=== PATIENT | female | born 1945 | race Caucasian/White ===

== ENCOUNTER 2025-01-31 15:55 | Inpatient (IN) | payer MEDICARE ==
[~2025-01-31 15:55] MED LIST: Iopamidol 370 76% 100 ML VIAL ONE
[2025-01-31] MEDS ORDERED: Heparin 25,000 UNITS/D5W 500 ml bag ONE (16:01)
[2025-01-31] MEDS ORDERED: Adenosine 6 mg (2 mL) VIAL ONE (16:07)
[2025-01-31 16:32] LABS: #Basophils 0.04 10x3/uL (0.0-0.2); #Eosinophils 0.03 10x3/uL (0.0-0.7); #Monocytes 0.66 10x3/uL (0.11-0.59); #Neutrophils 7.91 10x3/uL (1.40-6.50); %Basophils 0.4 % (0.0-1.0); %Eosinophils 0.3 % (0.0-10.0); %Lymphocytes 12.7 % (21.0-51.0); %Monocytes 6.6 % (0.0-10.0); %Neutrophils 79.4 % (42.0-75.0); Hematocrit 38.5 % (36.0-47.0); Hemoglobin 11.6 g/dL (12.0-16.0); Mean Corpuscular Hemoglobin 31.7 pg (27.0-31.0); Mean Corpuscular Volume 105.2 fL (78.0-98.0); Platelet Count 179 10x3/uL (130-400); Red Blood Cell (RBC) Count 3.66 mill/uL (4.20-5.40); White Blood Cell (WBC) Count 9.97 10x3/uL (4.8-10.8)
[2025-01-31 16:45] LABS: INR-International Normal Ratio 1.0; Prothrombin Time 13.7 sec (12.0-14.7)
[2025-01-31 16:47] LABS: ALT (SGPT) 17 U/L (Less than 34); AST (SGOT) 50 U/L (11-34); Albumin 3.3 g/dL (3.1-4.5); Alkaline Phosphatase 38 U/L (40-110); Anion Gap 14 mmol/L (10-20); BUN (Urea Nitrogen) 20 mg/dL (9.8-20.1); Bilirubin, Total 0.3 mg/dL (0.3-1.2); Calc. Creatinine Clearance 0 mL/min (70-130); Calcium 8.5 mg/dL (7.8-10.44); Carbon Dioxide 20 mmol/L (23-31); Chloride 109 mmol/L (98-107); Globulin 3.5 g/dL (2.4-3.5); Glucose 148 mg/dL (83-110); Potassium 3.8 mmol/L (3.5-5.1); Sodium 139 mmol/L (136-145)
[2025-01-31] MEDS ORDERED: Nitroglycerin 50 MG/250 ML BOT 250 ML ONE (16:50)
[2025-01-31] MEDS ORDERED: Lidocaine 1% (PF) 30 ML VIAL ONE (16:50)
[2025-01-31 16:57] LABS: PTT 250.0 sec (22.9-36.1)
[2025-01-31] MEDS ORDERED: Heparin 10,000 UNITS/ 10 ML VIAL ONE (17:33)
[2025-01-31] MEDS ORDERED: TICAGRELOR 90 MG TABLET ONE (18:01)
[2025-01-31] MEDS ORDERED: TICAGRELOR 90 MG TABLET PO SCH ×2 (18:45→21:00)
[2025-01-31] MEDS ORDERED: Nitroglycerin 50 MG/250 ML BOT 250 ML IVPB SCH (19:00)
[2025-01-31] MEDS ORDERED: Heparin 10,000 UNITS/ 10 ML VIAL SLOW IVP SCH (19:00)
[2025-01-31 19:50] VITALS: BMI 34.0
[2025-01-31] MEDS ORDERED: Calcium Carbonate 500 MG ChewTAB PO PRN (19:50)
[2025-01-31 20:44] LABS: Hematocrit 34.3 % (36.0-47.0); Hemoglobin 11.0 g/dL (12.0-16.0); Platelet Count 197 10x3/uL (130-400)
[2025-01-31 21:20] LABS: PTT Greater than 250.0 sec (22.9-36.1)
[2025-01-31 21:20] LABS: Anion Gap 13 mmol/L (10-20); BUN (Urea Nitrogen) 16 mg/dL (9.8-20.1); Calc. Creatinine Clearance 111 mL/min (70-130); Calcium 8.1 mg/dL (7.8-10.44); Carbon Dioxide 23 mmol/L (23-31); Chloride 107 mmol/L (98-107); Glucose 141 mg/dL (83-110); Magnesium 1.9 mg/dL (1.6-2.6); Potassium 4.2 mmol/L (3.5-5.1); Sodium 139 mmol/L (136-145)
[2025-01-31] MEDS: Acetaminophen 325 MG TAB PO PRN (22:27)
[2025-02-01] MEDS: Magnesium 2 GM/50 ML(in water) 2 GM in Premix 1 BAG IVPB SCH (00:11)
[2025-02-01 01:17] LABS: PTT 144.8 sec (22.9-36.1)
[2025-02-01 02:39] LABS: #Basophils 0.03 10x3/uL (0.0-0.2); #Eosinophils Less than 0.03 10x3/uL (0.0-0.7); #Monocytes 1.26 10x3/uL (0.11-0.59); #Neutrophils 7.45 10x3/uL (1.40-6.50); %Basophils 0.3 % (0.0-1.0); %Eosinophils 0.2 % (0.0-10.0); %Lymphocytes 11.9 % (21.0-51.0); %Monocytes 12.6 % (0.0-10.0); %Neutrophils 74.7 % (42.0-75.0); Hematocrit 33.0 % (36.0-47.0); Hemoglobin 10.5 g/dL (12.0-16.0); Mean Corpuscular Hemoglobin 31.8 pg (27.0-31.0); Mean Corpuscular Volume 100.0 fL (78.0-98.0); Platelet Count 193 10x3/uL (130-400); Red Blood Cell (RBC) Count 3.30 mill/uL (4.20-5.40); White Blood Cell (WBC) Count 9.98 10x3/uL (4.8-10.8)
[2025-02-01 03:28] LABS: ALT (SGPT) 28 U/L (Less than 34); AST (SGOT) 184 U/L (11-34); Albumin 3.0 g/dL (3.1-4.5); Alkaline Phosphatase 34 U/L (40-110); Anion Gap 11 mmol/L (10-20); BUN (Urea Nitrogen) 14 mg/dL (9.8-20.1); Bilirubin, Total 0.5 mg/dL (0.3-1.2); Calc. Creatinine Clearance 116 mL/min (70-130); Calcium 8.2 mg/dL (7.8-10.44); Carbon Dioxide 24 mmol/L (23-31); Chloride 105 mmol/L (98-107); Globulin 3.0 g/dL (2.4-3.5); Glucose 132 mg/dL (83-110); Potassium 3.9 mmol/L (3.5-5.1); Sodium 136 mmol/L (136-145)
[2025-02-01] MEDS: TICAGRELOR 90 MG TABLET PO SCH (09:55)
[2025-02-01] MEDS: Aspirin Chewable 81 MG TAB PO SCH (09:55)
[2025-02-01] MEDS: Lisinopril 2.5 MG TAB PO SCH (09:56)
[2025-02-01] MEDS: PNEUMOC 20-VAL CONJ-DIP CRM/PF 0.5 ML SYRINGE IM ONE (09:57)
[2025-02-01] MEDS: Ondansetron PF 4 MG/2 ML Vial IVP PRN (10:07)
[2025-02-01 11:01] LABS: PTT 136.5 sec (22.9-36.1)
[2025-02-01] MEDS: Enoxaparin 80 MG (0.8 mL) SYRINGE SC SCH (20:34)
[2025-02-02] MEDS: Furosemide 40 MG (4 mL) VIAL SLOW IVP SCH (00:46)
[2025-02-02 02:44] LABS: #Basophils 0.03 10x3/uL (0.0-0.2); #Eosinophils Less than 0.03 10x3/uL (0.0-0.7); #Monocytes 1.02 10x3/uL (0.11-0.59); #Neutrophils 8.29 10x3/uL (1.40-6.50); %Basophils 0.3 % (0.0-1.0); %Eosinophils 0.1 % (0.0-10.0); %Lymphocytes 9.2 % (21.0-51.0); %Monocytes 9.9 % (0.0-10.0); %Neutrophils 80.0 % (42.0-75.0); Hematocrit 37.4 % (36.0-47.0); Hemoglobin 11.8 g/dL (12.0-16.0); Mean Corpuscular Hemoglobin 31.8 pg (27.0-31.0); Mean Corpuscular Volume 100.8 fL (78.0-98.0); Platelet Count 197 10x3/uL (130-400); Red Blood Cell (RBC) Count 3.71 mill/uL (4.20-5.40); White Blood Cell (WBC) Count 10.35 10x3/uL (4.8-10.8)
[2025-02-02 03:19] LABS: Hb (HGBA1c) 3421.3444 umol/L
[2025-02-02 04:32] LABS: Anion Gap 18 mmol/L (10-20); BUN (Urea Nitrogen) 14 mg/dL (9.8-20.1); Calc. Creatinine Clearance 103 mL/min (70-130); Carbon Dioxide 20 mmol/L (23-31); Chloride 100 mmol/L (98-107); Potassium 4.1 mmol/L (3.5-5.1); Sodium 134 mmol/L (136-145)
[2025-02-02 04:33] LABS: ALT (SGPT) 31 U/L (Less than 34); AST (SGOT) 130 U/L (11-34); Albumin 3.4 g/dL (3.1-4.5); Alkaline Phosphatase 44 U/L (40-110); Bilirubin, Total 0.7 mg/dL (0.3-1.2); Calcium 8.7 mg/dL (7.8-10.44); Cardiac Risk 2.6 (Less than 4.5); Cholesterol 174 mg/dl (< 200 Desired); Globulin 3.4 g/dL (2.4-3.5); Glucose 123 mg/dL (83-110); HDL Cholesterol 66 mg/dL (>60 Neg Risk); LDL Cholesterol, Calculated 89 mg/dL; Magnesium 2.0 mg/dL (1.6-2.6); Triglycerides 94 mg/dL (Less than 150)
[2025-02-02] MEDS: Magnesium 2 GM/50 ML(in water) 2 GM in Premix 1 BAG IVPB SCH (08:23)
[2025-02-02] MEDS: Milk Of Magnesia 30 ML UDCUP PO PRN (17:22)
[2025-02-02 18:58] LABS: Hematocrit 36.8 % (36.0-47.0); Hemoglobin 11.6 g/dL (12.0-16.0); Platelet Count 187 10x3/uL (130-400)
[2025-02-03 04:59] LABS: #Basophils Less than 0.03 10x3/uL (0.0-0.2); #Eosinophils 0.06 10x3/uL (0.0-0.7); #Monocytes 1.32 10x3/uL (0.11-0.59); #Neutrophils 5.61 10x3/uL (1.40-6.50); %Basophils 0.2 % (0.0-1.0); %Eosinophils 0.7 % (0.0-10.0); %Lymphocytes 18.2 % (21.0-51.0); %Monocytes 15.3 % (0.0-10.0); %Neutrophils 65.0 % (42.0-75.0); Hematocrit 34.3 % (36.0-47.0); Hemoglobin 10.8 g/dL (12.0-16.0); Mean Corpuscular Hemoglobin 31.6 pg (27.0-31.0); Mean Corpuscular Volume 100.3 fL (78.0-98.0); Platelet Count 191 10x3/uL (130-400); Red Blood Cell (RBC) Count 3.42 mill/uL (4.20-5.40); White Blood Cell (WBC) Count 8.63 10x3/uL (4.8-10.8)
[2025-02-03 05:18] LABS: ALT (SGPT) 28 U/L (Less than 34); AST (SGOT) 69 U/L (11-34); Albumin 2.8 g/dL (3.1-4.5); Alkaline Phosphatase 41 U/L (40-110); Anion Gap 10 mmol/L (10-20); BUN (Urea Nitrogen) 21 mg/dL (9.8-20.1); Bilirubin, Total 0.6 mg/dL (0.3-1.2); Calc. Creatinine Clearance 77 mL/min (70-130); Calcium 8.5 mg/dL (7.8-10.44); Carbon Dioxide 31 mmol/L (23-31); Chloride 102 mmol/L (98-107); Globulin 3.3 g/dL (2.4-3.5); Glucose 96 mg/dL (83-110); Potassium 3.5 mmol/L (3.5-5.1); Sodium 139 mmol/L (136-145)
[2025-02-04 05:08] LABS: Anion Gap 13 mmol/L (10-20); BUN (Urea Nitrogen) 27 mg/dL (9.8-20.1); Calc. Creatinine Clearance 88 mL/min (70-130); Calcium 8.2 mg/dL (7.8-10.44); Carbon Dioxide 26 mmol/L (23-31); Chloride 105 mmol/L (98-107); Glucose 91 mg/dL (83-110); Magnesium 2.4 mg/dL (1.6-2.6); Potassium 3.9 mmol/L (3.5-5.1); Sodium 140 mmol/L (136-145)
[2025-02-04 15:09] VITALS: BP 125/68; TEMP 98.6
== END 2025-02-04 17:55 | disposition home or self-care (01) | DRG 321 ==
LOC: ERS 15:55 → CCU 18:37 → 2NO 02-02 09:34
PROVIDERS: ADMIT Internal Medicine Cardiovascular Disease; ATTEND Internal Medicine
PROC: 4A023N7 Measurement of Cardiac Sampling and Pressure, Left Heart, Percutaneous Approach (ICD-10-PCS; principal; 2025-01-31)
PROC: 027034Z Dilation of Coronary Artery, One Artery with Drug-eluting Intraluminal Device, Percutaneous Approach (ICD-10-PCS; 2025-01-31)
PROC: B2151ZZ Fluoroscopy of Left Heart using Low Osmolar Contrast (ICD-10-PCS; 2025-01-31)
PROC: B2111ZZ Fluoroscopy of Multiple Coronary Arteries using Low Osmolar Contrast (ICD-10-PCS; 2025-01-31)
DX: I21.3 ST elevation (STEMI) myocardial infarction of unspecified site (principal); I50.21 Acute systolic (congestive) heart failure; E87.20 Acidosis, unspecified; E87.1 Hypo-osmolality and hyponatremia; M06.9 Rheumatoid arthritis, unspecified; F41.9 Anxiety disorder, unspecified; I25.10 Atherosclerotic heart disease of native coronary artery without angina pectoris; E87.6 Hypokalemia; E83.42 Hypomagnesemia; R74.01 Elevation of levels of liver transaminase levels; I11.0 Hypertensive heart disease with heart failure; Z90.710 Acquired absence of both cervix and uterus; Z98.890 Other specified postprocedural states; Z79.899 Other long term (current) drug therapy
CPT/HCPCS: 36415; 71045; 80048; 80053; 80061; 83036; 83735; 83880; 84100; 84484; 85014; 85018; 85025; 85049; 85347; 85610; 85730; 86850; 86900; 86901; 92941; 93005; 93010; 93306; 93458; 93798; 94760; 96365; 99152; 99153; C1769; C1874; C1887; C1894; C9606; J0153; J1644; J1650; J1940; J2250; J3475; J7030; Q9967

== ENCOUNTER 2025-02-14 19:37 | Inpatient (IN) | payer MEDICARE ==
[2025-02-14] MEDS ORDERED: Boostrix 0.5 ML (Tdap) VIAL (>/=7 yrs of age) ONE (20:28)
[2025-02-14 20:37] LABS: #Basophils 0.04 10x3/uL (0.0-0.2); #Eosinophils 0.16 10x3/uL (0.0-0.7); #Monocytes 1.00 10x3/uL (0.11-0.59); #Neutrophils 8.18 10x3/uL (1.40-6.50); %Basophils 0.4 % (0.0-1.0); %Eosinophils 1.5 % (0.0-10.0); %Lymphocytes 8.8 % (21.0-51.0); %Monocytes 9.6 % (0.0-10.0); %Neutrophils 78.6 % (42.0-75.0); Hematocrit 33.1 % (36.0-47.0); Hemoglobin 10.5 g/dL (12.0-16.0); Mean Corpuscular Hemoglobin 31.5 pg (27.0-31.0); Mean Corpuscular Volume 99.4 fL (78.0-98.0); Platelet Count 226 10x3/uL (130-400); Red Blood Cell (RBC) Count 3.33 mill/uL (4.20-5.40); White Blood Cell (WBC) Count 10.40 10x3/uL (4.8-10.8)
[2025-02-14 20:51] LABS: INR-International Normal Ratio 1.0; PTT 34.1 sec (22.9-36.1); Prothrombin Time 13.5 sec (12.0-14.7)
[2025-02-14 20:52] LABS: ALT (SGPT) 117 U/L (Less than 34); AST (SGOT) 111 U/L (11-34); Albumin 2.9 g/dL (3.1-4.5); Alkaline Phosphatase 353 U/L (40-110); Anion Gap 11 mmol/L (10-20); BUN (Urea Nitrogen) 12 mg/dL (9.8-20.1); Bilirubin, Total 0.5 mg/dL (0.3-1.2); Calc. Creatinine Clearance 0 mL/min (70-130); Calcium 8.0 mg/dL (7.8-10.44); Carbon Dioxide 22 mmol/L (23-31); Chloride 108 mmol/L (98-107); Globulin 3.3 g/dL (2.4-3.5); Glucose 96 mg/dL (83-110); Potassium 3.9 mmol/L (3.5-5.1); Sodium 137 mmol/L (136-145)
[2025-02-14] MEDS ORDERED: Lidocaine 1% w/Epinephrine 1:100K 20 ML VIAL ONE (22:00)
[2025-02-14] MEDS ORDERED: Calcium Carbonate 500 MG ChewTAB PO PRN (22:28)
[2025-02-14] MEDS ORDERED: Melatonin 3 MG TAB PO PRN (22:28)
[2025-02-15] VITALS: BMI 32.2
[2025-02-15 04:59] LABS: #Basophils 0.06 10x3/uL (0.0-0.2); #Eosinophils 0.12 10x3/uL (0.0-0.7); #Monocytes 0.91 10x3/uL (0.11-0.59); #Neutrophils 8.47 10x3/uL (1.40-6.50); %Basophils 0.5 % (0.0-1.0); %Eosinophils 1.1 % (0.0-10.0); %Lymphocytes 12.9 % (21.0-51.0); %Monocytes 8.2 % (0.0-10.0); %Neutrophils 76.6 % (42.0-75.0); Hematocrit 33.9 % (36.0-47.0); Hemoglobin 10.6 g/dL (12.0-16.0); Mean Corpuscular Hemoglobin 31.3 pg (27.0-31.0); Mean Corpuscular Volume 100.0 fL (78.0-98.0); Platelet Count 263 10x3/uL (130-400); Red Blood Cell (RBC) Count 3.39 mill/uL (4.20-5.40); White Blood Cell (WBC) Count 11.07 10x3/uL (4.8-10.8)
[2025-02-15 05:30] LABS: Iron 38 ug/dL (50-170); Iron Binding Capacity, Total 293 mcg/dL (265-497)
[2025-02-15 07:17] LABS: Chloride 107 mmol/L (98-107); Potassium 3.9 mmol/L (3.5-5.1); Sodium 138 mmol/L (136-145)
[2025-02-15 07:18] LABS: Calcium 8.1 mg/dL (7.8-10.44); Glucose 90 mg/dL (83-110)
[2025-02-15 07:20] LABS: Anion Gap 14 mmol/L (10-20); Carbon Dioxide 21 mmol/L (23-31)
[2025-02-15 07:22] LABS: BUN (Urea Nitrogen) 11 mg/dL (9.8-20.1); Calc. Creatinine Clearance 101 mL/min (70-130)
[2025-02-15 07:24] LABS: Iron 25 ug/dL (50-170); Iron Binding Capacity, Total 266 mcg/dL (265-497)
[2025-02-15] MEDS: Lisinopril 10 MG TAB PO SCH (09:44)
[2025-02-15] MEDS: Aspirin Chewable 81 MG TAB PO SCH (09:44)
[2025-02-15] MEDS: Folic Acid 1 MG TAB PO SCH (09:44)
[2025-02-15] MEDS: Enoxaparin 40 MG (0.4 mL) SYRINGE SC SCH (09:44)
[2025-02-15] MEDS: Metoprolol Succinate XL 25 MG ER.TAB PO SCH (09:45)
[2025-02-15] MEDS: TICAGRELOR 90 MG TABLET PO SCH (10:36)
[2025-02-15] MEDS: Senokot S 8.6-50 MG TAB PO PRN (10:39)
[2025-02-15] MEDS: Ondansetron PF 4 MG/2 ML Vial IVP PRN (22:37)
[2025-02-16 04:28] LABS: #Basophils 0.04 10x3/uL (0.0-0.2); #Eosinophils 0.20 10x3/uL (0.0-0.7); #Monocytes 0.95 10x3/uL (0.11-0.59); #Neutrophils 6.50 10x3/uL (1.40-6.50); %Basophils 0.4 % (0.0-1.0); %Eosinophils 2.2 % (0.0-10.0); %Lymphocytes 13.6 % (21.0-51.0); %Monocytes 10.6 % (0.0-10.0); %Neutrophils 72.3 % (42.0-75.0); Hematocrit 31.4 % (36.0-47.0); Hemoglobin 9.7 g/dL (12.0-16.0); Mean Corpuscular Hemoglobin 31.5 pg (27.0-31.0); Mean Corpuscular Volume 101.9 fL (78.0-98.0); Platelet Count 236 10x3/uL (130-400); Red Blood Cell (RBC) Count 3.08 mill/uL (4.20-5.40); White Blood Cell (WBC) Count 8.99 10x3/uL (4.8-10.8)
[2025-02-16 04:35] LABS: Anion Gap 18 mmol/L (10-20); BUN (Urea Nitrogen) 9 mg/dL (9.8-20.1); Calc. Creatinine Clearance 107 mL/min (70-130); Calcium 8.2 mg/dL (7.8-10.44); Carbon Dioxide 18 mmol/L (23-31); Chloride 103 mmol/L (98-107); Glucose 70 mg/dL (83-110); Potassium 3.5 mmol/L (3.5-5.1); Sodium 135 mmol/L (136-145)
[2025-02-16] MEDS: Losartan 25 MG TAB PO SCH (08:17)
[2025-02-17 05:49] LABS: #Basophils 0.05 10x3/uL (0.0-0.2); #Eosinophils 0.14 10x3/uL (0.0-0.7); #Monocytes 0.94 10x3/uL (0.11-0.59); #Neutrophils 7.12 10x3/uL (1.40-6.50); %Basophils 0.5 % (0.0-1.0); %Eosinophils 1.4 % (0.0-10.0); %Lymphocytes 15.9 % (21.0-51.0); %Monocytes 9.5 % (0.0-10.0); %Neutrophils 71.6 % (42.0-75.0); Hematocrit 31.2 % (36.0-47.0); Hemoglobin 10.1 g/dL (12.0-16.0); Mean Corpuscular Hemoglobin 32.1 pg (27.0-31.0); Mean Corpuscular Volume 99.0 fL (78.0-98.0); Platelet Count 251 10x3/uL (130-400); Red Blood Cell (RBC) Count 3.15 mill/uL (4.20-5.40); White Blood Cell (WBC) Count 9.94 10x3/uL (4.8-10.8)
[2025-02-17 06:06] LABS: Anion Gap 16 mmol/L (10-20); BUN (Urea Nitrogen) 12 mg/dL (9.8-20.1); Calc. Creatinine Clearance 101 mL/min (70-130); Calcium 8.3 mg/dL (7.8-10.44); Carbon Dioxide 21 mmol/L (23-31); Chloride 107 mmol/L (98-107); Glucose 76 mg/dL (83-110); Potassium 3.8 mmol/L (3.5-5.1); Sodium 140 mmol/L (136-145)
[2025-02-17] MEDS: Apixaban 5 MG TAB PO SCH (10:26)
[2025-02-17] MEDS: Acetaminophen 325 MG TAB PO PRN (15:16)
[2025-02-17] MEDS: Metoprolol Succinate XL 25 MG ER.TAB PO SCH (17:34)
[2025-02-17] MEDS: PNEUMOC 20-VAL CONJ-DIP CRM/PF 0.5 ML SYRINGE IM ONE (17:35)
[2025-02-17 17:46] LABS: Magnesium 2.2 mg/dL (1.6-2.6)
[2025-02-18 05:07] LABS: #Basophils 0.07 10x3/uL (0.0-0.2); #Eosinophils 0.27 10x3/uL (0.0-0.7); #Monocytes 0.93 10x3/uL (0.11-0.59); #Neutrophils 4.63 10x3/uL (1.40-6.50); %Basophils 0.9 % (0.0-1.0); %Eosinophils 3.5 % (0.0-10.0); %Lymphocytes 21.4 % (21.0-51.0); %Monocytes 12.2 % (0.0-10.0); %Neutrophils 60.7 % (42.0-75.0); Hematocrit 31.2 % (36.0-47.0); Hemoglobin 9.8 g/dL (12.0-16.0); Mean Corpuscular Hemoglobin 31.6 pg (27.0-31.0); Mean Corpuscular Volume 100.6 fL (78.0-98.0); Platelet Count 235 10x3/uL (130-400); Red Blood Cell (RBC) Count 3.10 mill/uL (4.20-5.40); White Blood Cell (WBC) Count 7.63 10x3/uL (4.8-10.8)
[2025-02-18 05:24] LABS: Anion Gap 11 mmol/L (10-20); BUN (Urea Nitrogen) 13 mg/dL (9.8-20.1); Calc. Creatinine Clearance 105 mL/min (70-130); Calcium 8.2 mg/dL (7.8-10.44); Carbon Dioxide 25 mmol/L (23-31); Chloride 107 mmol/L (98-107); Glucose 90 mg/dL (83-110); Potassium 3.4 mmol/L (3.5-5.1); Sodium 140 mmol/L (136-145)
[2025-02-18] MEDS: Metoprolol Succinate XL 25 MG ER.TAB PO SCH (09:10)
[2025-02-18 09:14] VITALS: TEMP 98.9
[2025-02-18 14:32] VITALS: BP 128/62
== END 2025-02-18 15:27 | disposition home or self-care (01) | DRG 552 ==
LOC: ERS 19:37 → 2NO 22:27 → OBSVTOIN 02-15 11:22
PROVIDERS: ADMIT Internal Medicine; ATTEND Internal Medicine
DX: S12.600A Unspecified displaced fracture of seventh cervical vertebra, initial encounter for closed fracture (principal); I47.10 Supraventricular tachycardia, unspecified; I25.2 Old myocardial infarction; I25.10 Atherosclerotic heart disease of native coronary artery without angina pectoris; M06.9 Rheumatoid arthritis, unspecified; I25.5 Ischemic cardiomyopathy; D64.9 Anemia, unspecified; I10 Essential (primary) hypertension; Z23 Encounter for immunization; Z90.710 Acquired absence of both cervix and uterus; Z98.890 Other specified postprocedural states; Z96.652 Presence of left artificial knee joint; Z79.82 Long term (current) use of aspirin; Z79.899 Other long term (current) drug therapy
CPT/HCPCS: 0439T; 12002; 36415; 36416; 70450; 71045; 72125; 80048; 80053; 82533; 82607; 83540; 83550; 83735; 84484; 85025; 85610; 85730; 86850; 86900; 86901; 90471; 90715; 93005; 93306; 96372; G0378; G0390; J1650; Q9957